=== PATIENT | male | born 1975 ===

== ENCOUNTER 2018-06-05 11:40 | Outpatient (CLI) | payer OTHER ==
[2018-06-05 13:44] LABS: eGFR (African) > 60; eGFR (Non-African) > 60
[2018-06-05 14:37] LABS: MCH. 31.2; MCV 89.6
[2018-06-05 14:38] LABS: BASO % 0.2; MONOCYTE % 8.8
[2018-06-05 14:39] LABS: LYMPH ABS # 2.12; MONOCYTE ABS # 0.47
== END 2018-06-05 14:13 ==
LOC: LAB 11:40
PROVIDERS: ATTEND General Practice
DX: K52.9 Noninfective gastroenteritis and colitis, unspecified (principal)
CPT/HCPCS: 80053; 83690; 85025; 85651; 86140